=== PATIENT | female | born 1995 | race American Indian/Alaskan Native ===

== ENCOUNTER 2021-12-29 23:45 | Emergency (ER) | payer OTHER ==
[2021-12-29 23:50] VITALS: BP 134/84
[2021-12-30] MEDS ORDERED: predniSONE 20 MG TAB PO ONE (04:59)
[2021-12-30] MEDS ORDERED: KETOROLAC 10 MG TAB PO ONE (04:59)
[2021-12-30] MEDS ORDERED: CYCLOBENZAPRINE 10 MG TAB PO ONE (04:59)
[2021-12-30] MEDS ORDERED: ACETAMINOPHEN W/CODEINE 300-30 MG TAB PO ONE (04:59)
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
== END 2021-12-30 06:25 | disposition home or self-care (01) ==
LOC: ED 23:45
DX: S16.1XXA Strain of muscle, fascia and tendon at neck level, initial encounter (principal); S39.012A Strain of muscle, fascia and tendon of lower back, initial encounter; M25.572 Pain in left ankle and joints of left foot; R07.89 Other chest pain; Z79.899 Other long term (current) drug therapy; V87.7XXA Person injured in collision between other specified motor vehicles (traffic), initial encounter; Y93.89 Activity, other specified; Y92.488 Other paved roadways as the place of occurrence of the external cause; Y99.8 Other external cause status
CPT/HCPCS: 71046; 72040; 72110; 99283